=== PATIENT | female | born 1990 | race American Indian/Alaskan Native ===

== ENCOUNTER 2017-09-27 10:31 | Outpatient (CLI) | payer OTHER ==
--- NOTE | 2017-09-27 12:18 | Fluoroscopy Report ---
HYSTEROSALPINGOGRAM: History: Infertility. Informed consent was obtained. Standard sterile prep and drape was employed. The catheter tip was subsequently placed within the uterine lumen via cervix. The small balloon on the tip of the catheter was inflated. Retrograde injection opacifies normal appearing uterine lumen. There is prompt filling of the fallopian tubes with prompt bilateral spillage. The uterine lumen demonstrates no evidence for extrinsic compression or intrinsic mass. IMPRESSION: Normal hysterosalpingogram.
== END 2017-09-27 10:32 | disposition home or self-care (01) ==
LOC: FLUORO 10:31
PROVIDERS: ATTEND Obstetrics & Gynecology
DX: N97.9 Female infertility, unspecified (principal)
CPT/HCPCS: 58340; 74740; Q9967

== ENCOUNTER 2022-04-18 21:53 | Emergency (ER) | payer OTHER ==
[2022-04-18] MEDS ORDERED: methylPREDNISolone Sod Succinate 125 MG/2 ML INJ IM ONE (22:10)
[2022-04-18] MEDS ORDERED: diphenhydrAMINE 25 MG CAP PO ONE (22:11)
[2022-04-18] MEDS ORDERED: FAMOTIDINE 20 MG TAB PO ONE (22:11)
--- NOTE | 2022-04-18 22:13 | Emergency Department Report ---
ED Allergic Reaction HPI - General Stated complaint: ALLERGIC REACTION Time Seen by Provider: 04/18/22 22:10 Source: patient Mode of arrival: Stretcher Limitations: No Limitations - History of Present Illness Initial Comments: Patient is a 31-year-old female brought in by EMS for evaluation of possible allergic reaction. States she ate shrimp at approximately 9 PM this evening and developed symptoms approximately 10 minutes later. She complains of initial scratchy throat followed by sensation of throat swelling. She denies any shortness of breath. Reports history of allergy to oysters in the past that did not require EpiPen. - Related Data Allergies Allergy/AdvReac Type Severity Reaction Status Date / Time Penicillins Allergy VOMITING,SH Verified 04/18/22 23:21 AKES shellfish derived Allergy THROAT Verified 04/18/22 23:21 CLOSES UP ED Review of Systems ROS: Stated complaint: ALLERGIC REACTION Other details as noted in HPI Constitutional: denies: chills, fever ENT: other (Throat swelling, irritation) Respiratory: no symptoms reported Cardiovascular: denies: chest pain, palpitations Gastrointestinal: denies: abdominal pain, nausea, diarrhea Musculoskeletal: denies: back pain, joint swelling, arthralgia Skin: denies: rash, lesions Neurological: denies: headache, weakness, paresthesias Psychiatric: denies: anxiety, depression ED Physical Exam - General Limitations: No Limitations General appearance: alert, in no apparent distress, obese - Head Head exam: Present: atraumatic, normocephalic - ENT ENT exam: Present: normal orophraynx, mucous membranes moist - Neck Neck exam: Present: normal inspection - Respiratory Respiratory exam: Present: normal lung sounds bilaterally. Absent: respiratory distress, wheezes - Cardiovascular Cardiovascular Exam: Present: regular rate, normal rhythm, normal heart sounds - Neurological Exam Neurological exam: Present: alert, oriented X3 - Psychiatric Psychiatric exam: Present: normal affect, normal mood - Skin Skin exam: Present: warm, dry, intact, normal color. Absent: rash, erythema, urticaria ED Course Vital Signs 04/18/22 04/19/22 04/19/22 21:54 00:21 00:23 Temperature 98 F 97.9 F 97.9 F Pulse Rate 92 H 79 79 Respiratory 18 15 15 Rate Blood Pressure 112/76 103/45 Blood Pressure 103/45 [Right] O2 Sat by Pulse 98 97 97 Oximetry 04/19/22 02:15 Temperature Pulse Rate 71 Respiratory 14 Rate Blood Pressure Blood Pressure 133/66 [Right] O2 Sat by Pulse 98 Oximetry ED Medical Decision Making - Medical Decision Making Patient given Solu-Medrol, Benadryl and Pepcid. She was monitored in ED for several hours. On reassessment patient sleeping comfortably. Upon awakening states he feels better. She is stable for discharge home with return precautions Critical care attestation.: If time is entered above; I have spent that time in minutes in the direct care of this critically ill patient, excluding procedure time. ED Disposition Clinical Impression: Allergic reaction to food Disposition: 01 HOME / SELF CARE / HOMELESS Is pt being admited?: No Does the pt Need Aspirin: No Condition: Stable Instructions: Seafood Allergy Time of Disposition: 02:26
[2022-04-19 02:16] VITALS: BP 133/66
== END 2022-04-19 02:49 | disposition home or self-care (01) ==
LOC: ED 21:53
DX: T78.1XXA Other adverse food reactions, not elsewhere classified, initial encounter (principal); T78.49XA Other allergy, initial encounter; X58.XXXA Exposure to other specified factors, initial encounter
CPT/HCPCS: 96372; 99283; J2930